=== PATIENT | female | born 1975 | race Caucasian/White ===

== ENCOUNTER 2018-02-12 15:32 | Emergency (ER) | payer MEDICAID ==
[~2018-02-12] VITALS: Ht 167.6 cm; Wt 61.4 kg
[2018-02-12 15:55] VITALS: BP 123/70
[2018-02-12] MEDS ORDERED: ACETAMINOPHEN EXTRA STRENGTH 500 MG TAB ONE (15:58)
[2018-02-12] MEDS ORDERED: ACETAMINOPHEN EXTRA STRENGTH 500 MG TAB PO ONE ×2 (16:00→18:55)
--- NOTE | 2018-02-12 16:03 | NUR ---
AFTER TAKING TYLENOL MEDICATION PER PROTOCOL, PT AMBULATES WITH BACK TO THE LOBBY
--- NOTE | 2018-02-12 16:44 | NUR ---
PATIENT AMBULATED TO BED 5 AT THIS TIME.
--- NOTE | 2018-02-12 16:55 | NUR ---
42/F presents to ED for evaluation of fever for the past 4 days. Pt also reports she had an episode for 3 days last week where she had abd pain, described as "strong contractions," intermittent. Pt denies pain at this time. Temp is 99.3 orally. Pt denies any N/V/D. AOX4, turkish speaking. Skin warm and dry, normal in color for ethnicity. Abd soft, non tender, active bowel sounds x4 quadrants. VSS. Pt in a gown, at bedside. All needs addressed at this time. UA collected.
[2018-02-12] MEDS ORDERED: NACL 0.9% 1,000 ML IV SCH (18:52)
--- NOTE | 2018-02-12 19:15 | NUR ---
PT WENT FOR CT
--- NOTE | 2018-02-12 19:17 | NUR ---
Pt report given to Jami HUGHES. Transfer of care at this time.
[2018-02-12 19:39] LABS: BASOPHILS % (AUTO) 0.5 % (0.0-2.0); EOSINOPHILS % (AUTO) 0.7 % (0.0-4.0); HEMATOCRIT 33.9 % (36-48); HEMOGLOBIN 11.1 g/dL (12.0-16.0); LYMPHOCYTES # (AUTO) 1.1 K/uL (2.5-16.5); LYMPHOCYTES % (AUTO) 18.1 % (20.5-51.1); MEAN CORPUSCULAR HEMOGLOBIN 26 pg (27-31); MEAN CORPUSCULAR HGB CONC 33 g/dL (33-37); MEAN CORPUSCULAR VOLUME 80.1 fL (80-94); MONOCYTES # (AUTO) 0.7 K/uL (0.8-1.0); MONOCYTES % (AUTO) 11.7 % (1.7-9.3); NEUTROPHILS # (AUTO) 4.1 K/uL (1.8-7.7); PLATELET COUNT (AUTO) 177 K/uL (140-450); RED BLOOD CELL COUNT(AUTO) 4.24 MIL/uL (4.20-5.40); RED CELL DISTRIBUTION WIDTH 15.1 % (11.6-13.7)
--- NOTE | 2018-02-12 19:41 | NUR ---
PT RETURN FROM CT Addendum: 02/12/18 at 1942 by DACIA PT RETURN FROM RADIOLOGY
[2018-02-12 19:54] LABS: ANION GAP 13.5 (8-16); CARBON DIOXIDE 26.5 mmol/L (21-32); CREATININE 0.7 mg/dL (0.6-1.3)
[2018-02-12] MEDS ORDERED: cefTRIAXone 1,000 MG VIAL ONE (19:57)
[2018-02-12 20:01] LABS: ALBUMIN 3.1 g/dL (3.4-5.0); TOTAL BILIRUBIN 0.2 mg/dL (0.0-1.0)
[2018-02-12 20:09] LABS: APPEARANCE,URINE CLEAR (CLEAR); BILIRUBIN,URINE NEGATIVE (NEGATIVE); BLOOD, URINE 1+ (NEGATIVE); COLOR,URINE YELLOW (YELLOW); LEUKOCYTE ESTERASE ,URINE NEGATIVE (NEGATIVE); NITRITE, URINE NEGATIVE (NEGATIVE); UGLUCOSE NEGATIVE (NEGATIVE)
[2018-02-12 20:32] LABS: RBC,URINE 0-5 (RARE) /HPF (0-5); WBC,URINE 0-5 (RARE) /HPF (0-5)
[2018-02-12 20:37] VITALS: BP 104/59
--- NOTE | 2018-02-12 20:37 | NUR ---
Patient discharged with v/s stable. Written and verbal after care instructions given and explained. Patient alert, oriented and verbalized understanding of instructions. Ambulatory with steady gait. All questions addressed prior to discharge. ID band removed. Patient advised to follow up with PMD. Rx of ZOFRAN, NORCO, IBUPROFEN, CEPHALEXIN given. Patient educated on indication of medication including possible reaction and side effects. Opportunity to ask questions provided and answered.
== END 2018-02-12 20:37 | disposition home or self-care (01) ==
LOC: MED 15:32
DX: N10 Acute pyelonephritis (principal)
CPT/HCPCS: 36415; 74176; 76705; 80053; 81001; 81025; 83690; 84703; 85025; 87086; 96365; 99285; J0696; Q0092

== ENCOUNTER 2018-03-20 20:23 | Emergency (ER) | payer MEDICAID ==
[~2018-03-20] VITALS: Ht 167.6 cm; Wt 65.8 kg
--- NOTE | 2018-03-20 20:40 | NUR ---
pt sent to [facility], w/ daughter.
[2018-03-20 20:41] VITALS: BP 118/60
--- NOTE | 2018-03-20 21:45 | NUR ---
PATIENT PRESENTS TO ED WITH PAIN AND EDEMA TO BILAT ANKLES, KNEES, AND WRISTS X1 MONTH. PT STATES NO TRAUMA. DENIES N/V/D; SKIN IS PINK/WARM/DRY; AAOX4 WITH EVEN AND STEADY GAIT; LUNGS CLEAR BL; HR EVEN AND REGULAR; PT DENIES ANY FEVER, CP, SOB, OR COUGH AT THIS TIME; PATIENT STATES PAIN OF 0/10 AT THIS TIME; VSS; PATIENT POSITIONED FOR COMFORT; HOB ELEVATED; BEDRAILS UP X2; BED DOWN. ER MD MADE AWARE OF PT STATUS.
--- NOTE | 2018-03-20 21:45 | NUR ---
PT AMBULATED TO ER BED 05
[2018-03-20 22:48] VITALS: BP 118/60
== END 2018-03-20 22:48 | disposition home or self-care (01) ==
LOC: MED 20:23
DX: L94.9 Localized connective tissue disorder, unspecified (principal)
CPT/HCPCS: 99283